=== PATIENT | male | born 1960 | race Two or more races ===

== ENCOUNTER 2016-07-22 09:00 | Emergency (ER) | payer OTHER ==
[~2016-07-22] VITALS: Ht 170.2 cm; Wt 81.6 kg
[2016-07-22 09:18] VITALS: BP 140/81
== END 2016-07-22 09:28 | disposition home or self-care (01) ==
LOC: EDUNIT# 09:00 → ER 09:02
DX: S61.001A Unspecified open wound of right thumb without damage to nail, initial encounter (principal); W27.8XXA Contact with other nonpowered hand tool, initial encounter; Y93.89 Activity, other specified; Y92.89 Other specified places as the place of occurrence of the external cause; Y99.9 Unspecified external cause status
CPT/HCPCS: 99283; A4606 ×2; A6402; Z7610 ×2